=== PATIENT | male | born 1955 | race Caucasian/White ===

== ENCOUNTER 2020-08-21 09:10 | Outpatient (CLI) | payer OTHER, SELFPAY ==
--- NOTE | ~2020-08-21 | XR_ITS ---
EXAMINATION: XR femur LT min 2V DATE: 08/21/2020 09:36 INDICATION: Left thigh pain. TECHNIQUE: 2 views of left femur on 5 radiographs were obtained. COMPARISON: None. FINDINGS: Bone alignment is normal. No fracture. There is mild left hip osteoarthritis. Left knee orestes nt is normal. No knee joint effusion. IMPRESSION: 1. Mild left hip osteoarthritis. Reviewed, dictated and finalized at location A. [employer]
== END 2020-08-21 09:11 | disposition home or self-care (01) ==
LOC: ANHIMG 09:21
PROVIDERS: PCP Internal Medicine; Visit Provider Internal Medicine
DX: M16.12 Unilateral primary osteoarthritis, left hip (principal)
CPT/HCPCS: 73552

== ENCOUNTER 2020-12-14 15:00 | Outpatient (RCR) | payer MEDICARE, SELFPAY ==
--- NOTE | 2020-11-09 09:52 | PTOPEVAL ---
Thank you for referring Humberto Lozada to [facility][Note 3].? The patient is scheduled to be seen for therapy? 1 x/week for 4 weeks. Please review, sign, date and return this plan of care CIELO. I agree with and certify that the following plan of care is medically necessary. Referring Physician Date Attending Provider: Rajat Salguero, DO Initial Evaluation Evaluation Information Problem Diagnosis left hip pain Onset chronic Cause unknown Subjective Information He reports hip pain with Query Text:As Reported By Patient/ prolonged sitting, when Family sleeping on left side. Denies pain with community walking. Slight discomfort with supervisory civil engineer. Denies problems with steps He does stretches of leg lifts, placing leg on the counter. he is retired and watches his grandkids. He performs some walking, but not consistently. He does not perform a regular exercise program. Diagnostic Tests X-Rays For This Problem Yes: Mild left hip osteoarthritis Pain Assessment Timing of Pain Assessment Left Hip(s) Reported Pain Level 3 Pain Description Aching Pain Frequency Chronic,Continuous Lowest Pain Intensity 3 Greatest Pain Intensity 4 Pain Aggravating Factors Prolonged Position,Sitting Pain Behaviors None Pain Score Pain Score 3: Self Report Interventions Used Interventions Used By Clinicians Education,Exercise Pain Relief Interventions Used By None Patient Cervical and Lumbar ROM Lumbar ROM Lumbar Flexion Active Mid Coronel Query Text:Hands to: Lateral Flexion mid thigh-left Query Text:Active Hands to: sup knee region on right Lumbar Comments flex, ext and rotation no pain hip pain with left lateral flex 100% trunk ext and rotation Lower Extremity Range of Motion Hip Range of Motion Left Reason Not Measured WNL/Left,WNL/Right Lower Extremity Muscle Strength Testing Hip Strength Bilateral Hip Flexion Strength 4- Good - Hip Extension Strength 3+ Fair + Hip Abduction Strength 3 Fair Knee Strength Bilateral Knee Flexion Strength 3+ Fair + Knee Extension Strength 4- Good - Ankle Strength Bilateral Ankle Dorsiflexion Strength 4 Good Ankle Plantarflex
--- NOTE | 2020-12-14 16:01 | PTOPEVAL ---
Thank you for referring Humberto Lozada to [facility].? Pt has been seen for 5 therapy visits to address impairments with his hip. He demonstrates improved joint motion, improved strength, and decreased pain. He demonstrates continued hip tightness and muscle tenderness that would benefit from 1 additional visits to address the soft tissue restrictions. The patient is scheduled to be seen for therapy?1 in the next 2 weeks. Please review, sign, date and return this plan of care CIELO. I agree with and certify that the following plan of care is medically necessary. Referring Physician Date Attending Provider: Rajat Salguero, DO Physical Therapy Progress Note Diagnosis left hip pain Onset chronic Cause unknown Subjective Information He reports improved hip pain Query Text:As Reported By Patient/ with prolonged sitting. He has Family increased hip soreness with sleeping on left side. He has increased pain with increased activities of running or playing with grand kids. He is performing his HEP 4 times a week. He does feel like his legs are stronger. Pain Assessment Left Hip(s) Reported Pain Level 3 Pain Description Aching,Burning Pain Frequency Chronic,Intermittent Lowest Pain Intensity 0 Greatest Pain Intensity 3 Pain Aggravating Factors Prolonged Position,Sitting, Walking Pain Score Pain Score 3: Self Report Cervical and Lumbar ROM Lumbar ROM Lumbar Flexion Active Mid Coronel Query Text:Hands to: Lateral Flexion sup knee region on deloris Query Text:Active Hands to: Lumbar Comments flex, ext and rotation no pain no hip pain with left lateral flex 100% trunk ext and rotation Lower Extremity Range of Motion Left Reason Not Measured WNL/Left,WNL/Right Lower Extremity Muscle Strength Testing Hip Strength Bilateral Hip Flexion Strength 4+ Good + Hip Extension Strength 4 Good Hip Abduction Strength 3+ Fair + Knee Strength Bilateral Knee Flexion Strength 4+ Good + Knee Extension Strength 4+ Good + Ankle Strength Bilateral Ankle Dorsiflexion Strength 5 Normal Ankle Plantarflexion Strength 4 Good Ankle Strength Comments deloris heel raises x 10 reps Muscle Length Testing Two-Joint Hip Flexor Shortened Muscles Short (R) Iliopsoas,Short (L) Iliopsoas,Short (R) Rectus Femoris,Short (L) Rectus Femoris,Short
--- NOTE | 2020-12-28 12:59 | PCPTNOTE ---
Patient did not show up for scheduled appointment this date. Called pt who thought his visit was at 3 pm. Will hold chart open for 2 wks. Per pt he is feeling better with the exercises.
--- NOTE | 2021-01-03 08:38 | PCPTNOTE ---
Admitting Provider: Attending Provider: Rajat Salguero DO Patient:Humberto Lozada Date of :1955 Discharge Note Patient has not returned for any further treatments since 12/14/2020, therefore he will be discharged at this time. Patient?s initial visit was on 11/09/2020 08:30 and he had a total of 5 visits with 2 cancelled/ no show visits. The goals have been not met at time of discharge. Thank you for referring this patient to [facility]. Please review, sign, date and return this discharge summary CIELO. I have been updated about the patient's current status and I agree with discharge from the above service at this time. Referring Physician Date
== END 2021-01-03 16:18 | disposition home or self-care (01) ==
LOC: ANHPT 15:00
PROVIDERS: PCP Internal Medicine; Visit Provider Internal Medicine
DX: M79.652 Pain in left thigh (principal)
CPT/HCPCS: 97110; 97112; 97140; 97161

== ENCOUNTER 2022-05-07 11:30 | Outpatient (RCR) | payer MEDICARE, SELFPAY ==
--- NOTE | 2022-04-24 10:07 | PTOPEVAL ---
PHYSICAL THERAPY EVALUATION AND PLAN OF CARE Thank you for referring Humberto Lozada to [facility].? The patient is scheduled to be seen for pelvic floor physical therapy?3-4visits over 6 wks. Please review, sign, date and return this plan of care CIEOL. I agree with and certify that the following plan of care is medically necessary. Referring Physician Date Attending Provider: Merly Trevizo APRN Diagnosis frequent nocturia Subjective Information Humberto is here today to talk Query Text:As Reported By Patient/ about frequent night time Family urination. States that he at most he will get up 3x/night. States he starting doing a bridge exercise with a band and only got up 1x last night. States that he does not leak before voiding but will dribble after urination sometimes. Reports no stress incontinence. States that he drinks about 80 oz of water a day and goes the bathroom about every 2 hours or so. he does have an enlarged prostate and takes medication. Pain Score 0: Self Report Lower Extremity Range of Motion General Lower Extremity Range of Motion Gross Lower Extremity Range of Motion right hip generally decreased Comments rotation compared to left with moderate deficit Lower Extremity Muscle Strength Testing Hip Strength Left Hip Flexion Strength 4+ Good + Hip Extension Strength 4- Good - Hip Abduction Strength 3+ Fair + Hip Adduction Strength 3+ Fair + Right Hip Flexion Strength 4 Good Hip Extension Strength 3+ Fair + Hip Abduction Strength 3 Fair Hip Adduction Strength 4- Good - Knee Strength Bilateral Knee Flexion Strength 5 Normal Knee Extension Strength 5 Normal Muscle Length Testing Muscle Length Testing Piriformis w/Hip Flexion >90 Degrees (L) Moderate Tightness,(R) Severe Tightness Left Hamstring Length -25 Query Text:(90 - 90 Position) Right Hamstring Length -40 Query Text:(90 - 90 Position) Right Prone Knee Flexor Muscle Length ( 115 degrees) Left Prone Knee Flexor Muscle Length ( 110 degrees) Pelvic Health Evaluation Pelvic Floor Assessment Permission Received for External/ Yes: through clothing Internal Perineal Exam Sustained Levator Ani Strength <3/5 for 3seconds; improved with hip adductio
--- NOTE | 2022-05-14 13:24 | PCPTNOTE ---
PHYSICAL THERAPY DISCHARGE Attending Provider: Merly Trevizo APRN Patient:Humberto Lozada Date of :1955 Humberto called and cancelled his last appointment stating that he was doing well with his exercises to treat frequent nocturia; therefore he will be discharged at this time. Patient?s initial visit was on 04/24/2022 and had a total of 2 visits. Thank you for referring this patient to [facility]. Please review, sign, date and return this discharge summary CIELO. I have been updated about the patient's current status and I agree with discharge from the above service at this time. Referring Physician Date
== END 2022-05-15 10:59 | disposition home or self-care (01) ==
LOC: ANHPT 11:30
PROVIDERS: PCP Internal Medicine; Visit Provider Nurse Practitioner Adult Health
DX: R35.1 Nocturia (principal)
CPT/HCPCS: 97112; 97162

== ENCOUNTER 2023-11-02 08:48 | Outpatient (CLI) | payer MEDICARE, SELFPAY ==
--- NOTE | ~2023-11-02 | XR_ITS ---
Clinical Indication: Cough PA and lateral views of the chest: Comparison: None Findings: Calcified right basilar granuloma, otherwise clear lungs. Cardiomediastinal silhouette is w ithin normal limits. Bones and soft tissues are unremarkable. Impression: No significant pulmonary abnormality seen. Reviewed, dictated and finalized at [facility]. TH SCIENCE SPECIALIST Impression: No significant pulmonary abnormality seen.
== END 2023-11-02 08:49 | disposition home or self-care (01) ==
PROVIDERS: PCP Family Medicine; Visit Provider Nurse Practitioner Family
DX: R05.9 Cough, unspecified (principal)
CPT/HCPCS: 71046

== ENCOUNTER 2024-09-20 09:23 | Outpatient (RCR) | payer MEDICARE, SELFPAY ==
[2024-09-20 09:23] VITALS: BMI 23.2
== END 2024-12-05 09:32 | disposition home or self-care (01) ==
LOC: ANHDMC 09:23
PROVIDERS: PCP Nurse Practitioner Family; Visit Provider Nurse Practitioner Family
DX: K58.9 Irritable bowel syndrome, unspecified (principal); Z71.3 Dietary counseling and surveillance
CPT/HCPCS: 97802

== ENCOUNTER 2025-04-21 06:54 | Outpatient (CLI) | payer MEDICARE, SELFPAY ==
--- NOTE | ~2025-04-21 | XR_ITS ---
Thoracic spine: Clinical Indication: Back pain AP and lateral views were performed. No fracture is seen. There is normal alignment of the vertebrae. The intervertebral disc spaces appe ar normal. Paravertebral soft tissues appear normal. Impression: No significant abnormalities noted. Reviewed, dictated and finalized at [facility]. Impression: No significant abnormalities noted.
--- NOTE | ~2025-04-21 | XR_ITS ---
Lumbosacral Spine: AP and lateral views Clinical History: Pain Findings: The normal lordotic curve is maintained. No fracture or subluxation identified. There are a nterior bridging ossifies at the L1-L2 level. There is moderate degenerative single L5-S1. There is a dvanced facet arthropathy at L4-L5 and L5-S1. The sacroiliac joints are normally outlined. Impression: Moderate to advanced degenerative spondylosis of the lower lumbar spine, as detailed above. Reviewed, dictated and finalized at location M. Impression: Moderate to advanced degenerative spondylosis of the lower lumbar spine, as det more above.
--- OUTSIDE RECORDS SUMMARY | 2025-04-21 06:56 | XMS_ITS | Clinical Summary ---
Author Organization [facility] Address [address] [place] [address] Care Team Providers Care Bilingual Customer Service Name Role Phone Rajat Salguero DO Primary Care Provider [phone] Robert Talavera MD Unavailable [phone] Source Comments [facility],non-owned Affiliates and Associated Physician Practices is amultiple site organization consisting of ambulatory clinics and hospital sitesin [place], [place], [place] and [place]. This disclosure is being madepursuant to the Care Everywhere program and may not contain all information available regarding this patient. Last updated 18.[facility] Allergies Active Allergy Reactions Criticality Noted Date Comments Penicillins Urticaria Medium 03/16/2018 Medications * Be aware that medications may not be up to date on this document. Alwaysverify current medications with the patient. Citalopram Hydrobromide (CELEXA PO) Active risperiDONE, disintegrating, (RISPERDAL M) 2 MG tablet Take 2 mg by mouth 2 times daily Active Tamsulosin HCl (FLOMAX PO) Active FINASTERIDE PO Activ e Omeprazole (PRILOSEC PO) Active testosterone enanthate (DELATESTRYL) injection Inject 50 mg into muscle every 28 days Active ipratropium (ATROVENT) 0.06 % nasal sprayIndications: Upper respiratory tract infection, unspecified type Lebeau 2 sprays into each nostril 3 times daily as needed 1 bottles 8 Active Family History Medical History Relation Name Comments Cancer - Lung Father Depression Mother Relation Name Status Comments Father Mother Social History Tobacco Use Types Packs/Day Years Used Date Smoking Tobacco: Never Smokeless Tobacco: Never Sex and Gender Information Value Date Recorded Sex Assigned at Not on file Legal Sex Male 6:30 PM CDT Gender Identity Not on file Sexual Orientation Not on file Last Filed Vital Signs Vital Sign Reading Time Taken Comments Blood Pressure 140/92 05/06/2019 4:35 PM CDT Pulse 88 05/06/2019 4:35 PM CDT Temperature 36.8 C (98.3 F) 05/06/2019 4:35 PM CDT Respiratory Rate - - Oxygen Saturation 98% 05/06/2019 4:35 PM CDT Inhaled Oxygen Concentration - - Weight 83.5 kg (184 lb) 05/06/2019 4:35 PM CDT Height 177.8 cm (5' 10) 05/06/2019 4:35 PM CDT Body Mass Index 26.4 05/06/2019 4:35 PM CDT Plan of Treatment Health Maintenance Due Date Last Done Comments COLOGUARD (AGES 45-75) - COL ON CA SCREENING 1955 COLON MONITORING 1955 COLONOSCOPY - COLON CA SCREENING 1957 CT COLONOGRAPHY - COLON CA SCREENING 1955 Colorectal Cancer Screening 1955 FIT - COLON CA SCREENING 1955 FLEX SIG - COLON CA SCREENING 1955 LIPID TESTING 1955 MEDICARE AWV 12 MONTHS 1955 HEPATITIS C SCREENING 03/23/1975 DTAP/TDAP/TD VACCINES (1 - Tdap) 1976 PNEUMOCOCCAL VACCINE 50+ (1 of 1 - PCV) 2007 ZOSTER VACCINE (1 of 2) 2007 SCREENING FOR DIABETES 03/16/2018 COVID-19 VACCINE ( - 2023-2 5 season) 2024 DEPRESSION SCREENING 10/05/2024 INFLUENZA VACCINE (#1) 2025 Respiratory Syncytial Virus (RSV) Vaccine Pt: or over 60 yrs (1 - 1-dose 75+ series) 2032 HEPATITIS B VACCINE Aged Out No longe r eligible based on patient's age to complete this topic HIB VACCINE Aged Out No longer eligi ble based on patient's age to complete this topic HPV VACCINE Aged Out No longer eligi ble based on patient's age to complete this topic MENINGOCOCCAL (Group B) VACC INE SHARED DECISION-MAKING Aged Out No longer eligibl e based on patient's age to complete this topic MENINGOCOCCAL GROUPS A/C/Y/W VACCINE Aged Out No longer eligible b ased on patient's age to complete this topic Insurance ANTHEM [facility] MEDICARE Care Teams Bilingual Customer Service Relationship Specialty Start Date End Date Rajat Salguero DO [address] [place] [address] PCP - General Internal Medicine 05/06/19 Robert Talavera MD [address] [place] [id number] Internal Medicine 05/06/19
--- OUTSIDE RECORDS SUMMARY | 2025-04-21 06:56 | XMS_ITS | Continuity of Care Document ---
Author Organization [facility] Address [address] [place] [address] [address] [place] [address] Phone Care Team Providers Care Clinical Asst Name Role Phone Kamilla Mariscal Unavailable Unavailable Advance Directives Directive Yes / No Effective Date File Name No Information Encounters Encounter Description Practice Location Reason(s) For Visit Diagnoses Date Provider Providers Copied on Encounter [facility], [address] [place] [address] [address], [place], [place], [id number], [place] tel:[phone] [facility] No Information [address], [place], [address], [place]. tel:[phone] Family History Family Member Type Diagnosis Age At Onset No Information Payers Payer name Insurance type Covered green party ID Authoriza tion(s) [place] [id number] Social History Type Description Quantity Date Captured Comments Sex Male Smoking Status No Information Chief Complaint And Reason For Visit No Information Reason For Referral Reason For Referral No Information History Of Present Illness Encounter Date Complaint History Of Prese nt Illness No Information Functional Status Date Functional Assessmen t No Information Instructions Date Instruction Additional Infor mation No Information Assessments Type Assessment Date No Information Patient Care Teams Name Effective Dates (start - stop) Status Members No Information
--- OUTSIDE RECORDS SUMMARY | 2025-04-21 06:56 | XMS_ITS | Patient Health Record ---
Author Organization [facility] Address [address] [place] [address] Care Team Providers Care Supervisor Sign Shop Name Role Phone Joyce Voss Unavailable [phone] Reason For Referral No Information Medications Medication SIG (Take, Route, Frequency, Duration) Notes Start Date End Date Status Tamsulosin HCl 0.4 MG Oral Active Citalopram Hydrobromide 20 MG Oral Active Azithromycin 250 MG Oral Active Omeprazole 20 MG Oral Act sonia Testosterone Cypionate 200 MG/ML Intramuscular Active risperiDONE 2 MG Oral Act sonia Finasteride 5 MG Oral Act sonia Benzonatate 100 MG Oral A ctive Azelastine HCl 137 MCG/SPRAY Nasal Active Plan Of Treatment No Information Insurance Providers Payer Name Payer Address Payer Phone Subscriber Number Group Number Insured Name Patient Relationship to Insured Coverage Start Date Coverage End Date [employer] o [address] [address] [place] [address] [phone] [id number] TAMERA HERNANDEZ Self - patient is the insured
--- OUTSIDE RECORDS SUMMARY | 2025-04-21 06:57 | XMS_ITS | Patient Health Record ---
Author Organization [facility] Address [address] [place], [place] [id number] Care Team Providers Care Soft Work Cigar Machine Operator Name Role Phone Car Raya Primary Care Provider MIKE Rendon Unavailable [phone] Allergies Allergen (clinical drug ingredient) Drug/Non Drug Allergy documented on EMR Reaction Allergy Type Onset Date Status Latex Latex Unknown Allergy Active Penicillin Unknown Drug Allergy Active Reason For Referral No Information Social History Tobacco Use: Social History Observation Description Date Details (start date - stop date) Never Smoker NA - NA Tobacco Control (Standard) Question Answer Notes Tobacco use: Nonsmoker Plan Of Treatment No Information Insurance Providers Payer Name Payer Address Payer Phone Subscriber Number Group Number Insured Name Patient Relationship to Insured Coverage Start Date Coverage End Date [address] [place] [address] [phone] [id number] [employer] HERNANDEZ Self - patient is the insured Medical (General) History Medical History History ICD Code acid reflux Pneumonia cancer Psychiatric Disorder Surgical History Surgery Date(Month/Year) broken arm 1968 throat dilation 2014
== END 2025-04-21 06:55 | disposition home or self-care (01) ==
PROVIDERS: PCP Nurse Practitioner Family; Visit Provider Nurse Practitioner Family
DX: M47.817 Spondylosis without myelopathy or radiculopathy, lumbosacral region (principal); M54.6 Pain in thoracic spine
CPT/HCPCS: 72072; 72100

== ENCOUNTER 2025-05-30 16:41 | Outpatient (CLI) | payer MEDICARE, SELFPAY ==
--- NOTE | ~2025-05-30 | XR_ITS ---
XR foot RT 2V 05/30/2025 16:54 Indication: Right foot pain Procedure: 2 views right foot Comparison: No prior studies for comparison. Findings: No fracture, subluxation or dislocation. Lisfranc joint intact. Small degenerative calcaneal enthesophytes. No soft tissue abnormality. No foreign bodies. Impression: 1: No significant bone or joint abnormality. Reviewed, dictated and finalized at location O. Impression: 1: No significant bone or joint abnormality.
--- OUTSIDE RECORDS SUMMARY | 2025-05-30 16:44 | XMS_ITS | Clinical Summary ---
Author Organization [facility] Address [address] [place] [address] Care Team Providers Care Global Security Architect Name Role Phone Rajat Salguero DO Primary Care Provider [phone] Robert Talavera MD Unavailable [phone] Source Comments [facility],non-owned Affiliates and Associated Physician Practices is amultiple site organization consisting of ambulatory clinics and hospital sitesin [place], [place], [place] and [place]. This disclosure is being madepursuant to the Care Everywhere program and may not contain all information available regarding this patient. Last updated 18.[facility] Allergies Active Allergy Reactions Criticality Noted Date [...] sprayIndications: Upper respiratory tract infection, unspecified type Burna 2 sprays into each nostril 3 times [...] age to complete this topic Insurance ANTHEM [facility] MEDICARE Care Teams Global Security Architect Relationship Specialty Start Date End Date Rajat Salgeuro DO [address] [place] [address] PCP - General Internal Medicine 05/06/19 Robert Talavera MD [address] [place] [address] Internal Medicine 05/06/19
== END 2025-05-30 16:42 | disposition home or self-care (01) ==
PROVIDERS: PCP Nurse Practitioner Family; Visit Provider Nurse Practitioner Family
DX: R20.0 Anesthesia of skin (principal)
CPT/HCPCS: 73620

== ENCOUNTER 2025-08-01 13:43 | Outpatient (CLI) | payer MEDICARE, SELFPAY ==
--- NOTE | ~2025-08-01 | MR_ITS ---
EXAMINATION: MR lumbar spine wo con DATE: 08/01/2025 14:16 INDICATION: Radiculopathy. TECHNIQUE: Magnetic resonance imaging (MRI) of the lumbar spine was performed without intravenous contrast. Sequences included sagittal T2-weighted FSE, sagittal T2-weighted FS FSE, sagittal T1-weighted FSE, and axial T2-weighted FSE. COMPARISON: Lumbar spine radiographs 04/21/2025 FINDINGS: There is 4 degrees dextrocurvature of lumbar spine. There is 4 mm retrolisthesis of L5 on S1. There is mild chronic anterior wedging of T12 and L2 vertebral bodies. There is mildly decreased disc height at L4-L5 and moderately decreased disc height at L5-S1. The distal spinal cord signal intensity is normal. The conus medullaris is at L2. The following disc levels are specifically discussed: L1-L2: The disc does not extend beyond the endplate margin. There is mild bilateral facet joint osteoarthritis. There is no neural foraminal stenosis. There is no central canal stenosis. L2-L3: The disc does not extend beyond the endplate margin. There is severe bilateral facet joint osteoarthritis. There is no neural foraminal stenosis. There is no central canal stenosis. L3-L4: The disc does not extend beyond the endplate margin. There is severe bilateral facet joint osteoarthritis. There is no neural foraminal stenosis. There is no central canal stenosis. L4-L5: The disc is bulging and has an annular fissure. There is severe bilateral facet joint osteoarthritis. There is mild bilateral neural foraminal stenosis. There is mild central canal stenosis. L5-S1: The disc is bulging and has an annular fissure. There is severe right and moderate left facet joint osteoarthritis. There is mild bilateral neural foraminal stenosis. There is mild central canal stenosis. IMPRESSION: 1. Moderate lower lumbar spondylosis. Reviewed, dictated and finalized at location E.
== END 2025-08-01 13:44 | disposition home or self-care (01) ==
PROVIDERS: PCP Nurse Practitioner Family; Visit Provider Nurse Practitioner Family
DX: M47.816 Spondylosis without myelopathy or radiculopathy, lumbar region (principal); R20.0 Anesthesia of skin
CPT/HCPCS: 72148